=== PATIENT | female | born 1935 | race Native Hawaiian/Other Pacific Islander ===

== ENCOUNTER 2017-05-22 13:20 | Inpatient (IN) | payer OTHER ==
[~2017-05-22 13:20] MED LIST: ALPR0.5T24 PO; AVALIDE1 TA1 PO; DICL1GEL2 TOP; FURO20TA67 PO; LANTUS100 MG/ML SC; MELOXICAM15 MG PO; METFTAB PO; NYST100010 EX; PRED10TA27 PO; RISP1TAB PO
== END 2017-06-05 09:09 | disposition still patient (30) ==
LOC: PAVB 13:20
PROVIDERS: ADMIT Internal Medicine

== ENCOUNTER 2017-05-22 20:38 | Outpatient (CLI) | payer OTHER | END 2017-05-22 22:00 | disposition home or self-care (01) | LOC: LABW 20:38 → LAB 20:38 → LABW 22:00 | DX: G30.8 Other Alzheimer's disease (principal); E11.9 Type 2 diabetes mellitus without complications; I10 Essential (primary) hypertension | CPT/HCPCS: 87081 ==

== ENCOUNTER 2017-05-24 20:32 | Outpatient (CLI) | payer OTHER | END 2017-05-24 22:08 | disposition home or self-care (01) | LOC: LAB 20:32 | DX: R82.99 Other abnormal findings in urine (principal) | CPT/HCPCS: 81000; 87077; 87086; 87088; 87186 ==

== ENCOUNTER 2017-06-05 10:10 | Inpatient (IN) | payer OTHER | END 2017-07-06 08:56 | disposition still patient (30) | LOC: PAVB 10:10 | PROVIDERS: ADMIT Internal Medicine ==

== ENCOUNTER 2017-06-06 13:34 | Outpatient (CLI) | payer OTHER | END 2017-06-06 21:42 | disposition home or self-care (01) | LOC: RAD 13:34 | DX: M25.511 Pain in right shoulder (principal) ==

== ENCOUNTER 2017-06-16 05:10 | Outpatient (CLI) | payer OTHER ==
[2017-06-16 05:24] LABS: PLATELET COUNT 384 K/uL (152-353)
[2017-06-16 05:56] LABS: POTASSIUM 4.5 mmol/L (3.6-5.2)
== END 2017-06-16 20:58 | disposition home or self-care (01) ==
LOC: LAB 05:10
PROVIDERS: Internal Medicine
DX: E11.9 Type 2 diabetes mellitus without complications (principal); I10 Essential (primary) hypertension
CPT/HCPCS: 80048; 85027

== ENCOUNTER 2017-06-18 18:26 | Outpatient (CLI) | payer OTHER | END 2017-06-18 21:28 | disposition home or self-care (01) | LOC: LAB 18:26 | DX: D72.828 Other elevated white blood cell count (principal); R53.83 Other fatigue | CPT/HCPCS: 81000; 87088 ==

== ENCOUNTER 2017-07-06 10:06 | Inpatient (IN) | payer OTHER | END 2017-08-05 15:02 | disposition still patient (30) | LOC: PAVB 10:06 | PROVIDERS: ADMIT Internal Medicine ==

== ENCOUNTER 2017-07-20 05:31 | Outpatient (CLI) | payer OTHER | END 2017-07-20 23:07 | disposition home or self-care (01) | LOC: LAB 05:31 | DX: N39.0 Urinary tract infection, site not specified (principal) | CPT/HCPCS: 81000; 87077; 87086; 87088; 87185; 87186 ==

== ENCOUNTER 2017-08-05 15:53 | Inpatient (IN) | payer OTHER | END 2017-09-05 08:00 | disposition still patient (30) | LOC: PAVB 15:53 | PROVIDERS: ADMIT Internal Medicine ==

== ENCOUNTER 2017-09-05 09:00 | Inpatient (IN) | payer OTHER | END 2017-10-06 10:21 | disposition still patient (30) | LOC: PAVB 09:00 | PROVIDERS: ADMIT Internal Medicine ==

== ENCOUNTER 2017-10-06 10:34 | Inpatient (IN) | payer OTHER | END 2017-11-05 09:37 | disposition still patient (30) | LOC: PAVB 10:34 | PROVIDERS: ADMIT Internal Medicine ==

== ENCOUNTER 2017-11-05 12:24 | Inpatient (IN) | payer OTHER | END 2017-12-06 08:51 | disposition still patient (30) | LOC: PAVB 12:24 | PROVIDERS: ADMIT Internal Medicine ==

== ENCOUNTER 2017-12-06 09:19 | Inpatient (IN) | payer OTHER | END 2017-12-30 19:30 | disposition E | LOC: PAVB 09:19 | PROVIDERS: ADMIT Internal Medicine ==

== ENCOUNTER 2017-12-24 17:17 | Outpatient (CLI) | payer OTHER ==
[2017-12-24 17:50] LABS: PLATELET COUNT 404 K/uL (152-353)
[2017-12-24 21:42] LABS: POTASSIUM 4.3 mmol/L (3.6-5.2)
== END 2017-12-24 19:00 | disposition home or self-care (01) ==
LOC: RAD 17:17
PROVIDERS: Internal Medicine
DX: R50.9 Fever, unspecified (principal)
CPT/HCPCS: 36415; 80053; 81000; 85027; 87088

== ENCOUNTER 2017-12-26 06:23 | Outpatient (CLI) | payer OTHER | END 2017-12-26 19:34 | disposition home or self-care (01) | LOC: LAB 06:23 | DX: D64.9 Anemia, unspecified (principal) | CPT/HCPCS: 82728; 83540 ==